=== PATIENT | male | born 1970 | race Caucasian/White ===

== ENCOUNTER 2019-09-25 07:04 | Outpatient (CLI) | payer BC, SELFPAY ==
--- NOTE | 2019-09-25 07:14 | US_ITS ---
WS: [id number] Complete ABDOMINAL ULTRASOUND HISTORY: ECCHYMOSES COMPARISON: None available. Liver: 17.9 cm in length. Liver is top normal size to slightly enlarged. Mild coarsened echotexture. No bile duct dilatation. Gallbladder: Prior cholecystectomy. Pancreas: Normal size and echogenicity. CBD: 0.6 cm. Right kidney: 11.6 cm x 6.4 cm x 5.9 cm. No mass, cortical thickening or hydronephrosis. Left kidney: 12.6 cm x 7.6 cm x 6.8 cm. No mass, cortical thickening or hydronephrosis. Spleen: Normal size and echogenicity. Abdominal aorta and IVC are within normal limits. No ascites. US/US abdomen complete* [id number] IMPRESSION: 1. Liver is top normal size with mild coarsened echotexture. Consistent with h istory of hematocrit steatosis. 2. Prior cholecystectomy.
== END 2019-09-25 07:05 | disposition home or self-care (01) ==
LOC: RAD 07:09
PROVIDERS: PCP Electrodiagnostic Medicine; Visit Provider Electrodiagnostic Medicine
DX: R23.3 Spontaneous ecchymoses (principal); E83.119 Hemochromatosis, unspecified; I10 Essential (primary) hypertension
CPT/HCPCS: 76700

== ENCOUNTER 2019-11-28 17:57 | Emergency (ER) | payer BC, SELFPAY ==
[2019-11-28] VITALS (8 sets, daily range): BP systolic 114–161; BP diastolic 78–100; PULSE 65–91; RESP 14–19; TEMP 36.5; O2SAT 97–99; BMI 34.7
--- NOTE | 2019-11-28 18:58 | XRR_ITS ---
PROCEDURE INFORMATION: Exam: XR Chest, 1 View Exam date and time: 11/28/2019 7:16 PM Age: 49 years old Clinical indication: Cardiovascular condition or disease; Atrial fibrillation; Patient HX: A-fib and dizzy TECHNIQUE: Imaging protocol: XR of the chest Views: 1 view. COMPARISON: CR Chest 1 [place] [id number] 01/06/2016 6:46 PM FINDINGS: Lungs: Unremarkable. No consolidation. Pleural space: Unremarkable. No pleural effusion. No pneumothorax. Heart/Mediastinum: Unremarkable. No cardiomegaly. Bones/joints: No acute abnormality. XR/XR chest 1V portable [id number] IMPRESSION: No acute findings.
--- NOTE | 2019-11-28 20:59 | ECG_ITS ---
[facility] Test Date: 2019-11-28 Pat Name: Josh Santos Department: Room: Gender: Male Aging Department Supervisor: lakesha : 1970 Requested By: Huan Calero Order Number: [id number] Trang MD: Nya Farris M.D. Measurements Intervals [place] Rate: 74 P: OR: -1 QRS: -17 QRSD: 105 T: 28 QT: 347 QTc: 386 Interpretive Statements ATRIAL FIBRILLATION POSSIBLE RIGHT VENTRICULAR CONDUCTION DELAY [RSR (QR) IN V1/V2] ABNORMAL RHYTHM ECG Compared to ECG 01/06/2016 19:46:07 Sinus rhythm no longer present Incomplete right bundle-branch block no longer present Myocardial infarct finding no longer present Electronically Signed On 11-29-2019 16:21:58 CDT by Nya Farris M.D. [id number]
--- NOTE | 2019-11-28 21:16 | PC.NURSE ---
hcp in room
[2019-11-28 21:20] LABS: Basophils % 0.4 %; Eosinophils # 0.2 10^3/uL (0.0-0.8); Eosinophils % 2.1 %; Hematocrit 43.5 % (42.0-52.0); Hemoglobin 15.3 g/dL (11.7-16.6); Lymphocytes # 1.9 10^3/uL (0.8-4.8); Lymphocytes % 25.5 %; Mean Corpuscular HGB Conc 35.2 g/dL (30.0-36.0); Mean Corpuscular Hemoglobin 32.3 pg (28.0-34.0); Mean Corpuscular Volume 91.8 fL (80-94); Mean Platelet Volume 11.2 fL (7.4-10.4); Monocytes # 0.7 10^3/uL (0.2-0.9); Monocytes % 8.8 %; Neutrophils % 62.9 %; Nucleated Red Blood Cells % 0 %; Platelet Count 228 10^3/cmm (130-400); Red Blood Count 4.74 10^6/uL (4.1-5.3); Red Cell Distribution Width 11.9 % (12.1-15.1); White Blood Count 7.6 10^3/uL (4.0-10.0)
[2019-11-28 21:47] LABS: Alanine Aminotransferase 21 U/L (0-41); Albumin Level 4.4 g/dL (3.5-5.2); Alkaline Phosphatase 52 IU/L (40-130); Anion Gap 14.4 (5-19); Aspartate Amino Transferase 17 U/L (0-40); Blood Urea Nitrogen 12 mg/dL (6-20); Calcium 9.6 mg/dL (8.5-10.5); Carbon Dioxide 24 mmol/L (22-29); Chloride 106 mmol/L (98-107); Creatinine Clr Calc Pharmacy 128.2955; Globulin 2.7 g/dL (1.3-4.6); Glomerular Filtration Rate 78.8 mL/min (90-130); Glucose 103 mg/dL (65-115); Osmolality Calculated 286 mOsm/kg (285-295); Potassium 4.4 mmol/L (3.5-5.1); Sodium 140 mmol/L (136-145); Total Bilirubin 0.3 mg/dL (0.15-1.2); Total Protein 7.1 g/dL (6.6-8.7)
[2019-11-28 21:51] LABS: Troponin(5th) Baseline 10 ng/L (0-15)
--- NOTE | 2019-11-28 22:52 | ED_ITS ---
HPI - Arrhythmia/Palpitations General: Chief Complaint: Arrhythmia/Palpitations Stated Complaint: afib Time Seen by Provider: 11/28/19 21:09 History of Present Illness: HPI narrative: This patient is a very nice gentleman who is 49 years old. He presents today with atrial fibrillation. He has been having paroxysmal A. fib for probably 20 years but has only been diagnosed for the past 8. He has been managed on metoprolol which he takes twice a day, 50 mg each time. He had been on Xarelto at one time but as his episodes have been pretty infrequent he is on aspirin only now. These symptoms started last night and have continued throughout the day. He said this is the longest any of his episodes of ever lasted. He is only had to come to the ER few times. He is never been cardioverted. He never has a racing heart rate, just irregularity and palpitations. He can definitely feel the palpitations and is certain of the time of onset. He denies shortness of breath but does feel very tired. He feels a little bit lightheaded if he stands up too quickly. He denies chest pain. complaint: skipped beats , palpitations and irregular heart beat Onset (ago): minute(s) (18) Duration: constant Severity: similar to previous episodes Context: occurred during rest Arrhythmia history: atrial fibrillation Associated symptoms: Reports no associated symptoms; Deny nausea or vomiting Treatments prior to arrival: beta-angel Review of Systems General: Reports: 10 or more systems reviewed and unremarkable except in HPI and below Const: Denies: fever(s), chills or malaise Eyes: Denies: change in vision ENMT: Denies: odynophagia Card: Denies: chest pain or swelling of feet/ankles Resp: Denies: dyspnea, productive cough or non-productive cough GI: Denies: abdominal pain, nausea or vomiting : Denies: flank pain Musc: Denies: neck pain or back pain Skin/Breast: Denies: rash Neuro: Denies: headache(s), numbness in extremities or weakness in extremities Rakesh/Lymph: Denies: easy bruising or easy bleeding PFSH ED PFSH: Medical History (Updated 11/28/19 @ 22:54 by Kiarra Peterson MD) Paroxysmal atrial fibrillation Social History (Updated 09/11/20 @ 18:22 by Tabby Peralta RN) Smoking and tobacco status: never smoked Alcohol intake: current Substance/Drug Use: never Physical Exam Const: COMMON NORMALS: no acute distress, patient oriented x3, no limitations and alert GENERAL APPEARANCE: cooperative and comfortable HENMT: HEAD & SCALP: normal to inspection FACE & SINUS: normal facial exam Eye: GENERAL EYE: appearance normal, both eyes and all related structures Neck/C-Spine: COMMON NORMALS: supple, no meningeal signs and no JVD Chest: COMMONS NORMALS: normal inspection of the chest Resp: COMMON NORMALS: normal respiratory effort, No use of accessory muscles and clear to auscultation bilaterally AUSCULTATION: clear to auscultation bilaterally Cardio: COMMON NORMALS: no JVD, regular rate and No murmurs present (Cardio) RATE: regular rate RHYTHM: abnormal rhythm irregularly irregular GI: COMMON NORMALS: Normal to inspection, nondistended, normoactive bowel sounds present, Soft to palpation and non-tender INSPECTION: Yes normal to inspection AUSCULTATION: Yes normoactive bowel sounds PALPATION: Yes Soft to palpation Back/Pelvis: COMMON NORMALS: thoracic and lumbar spine normal to inspection Extremity: COMMON NORMALS: normal to inspection Neuro: COMMON NORMALS: patient oriented x3, moves all extremities, no focal motor deficits and no sensory deficits noted SENSORIUM/ORIENTATION: Yes alert MENINGEAL SIGNS: Yes no meningeal signs Psych: COMMON NORMALS: mental status grossly normal, cooperative and normal affect Skin: COMMON NORMALS: no rashes or lesions noted and turgor normal GENERAL SKIN EXAM: no rashes or lesions noted and turgor normal Course ED course: Patient was stable throughout the ED stay. His EKGs did not show any ischemic changes. His work-up on his labs was fairly unremarkable. I discussed case with Dr. Luque who recommended increasing his metoprolol to 75 mg in the morning. Continuing the 50 mg at night. He agreed with starting Xarelto. He will follow-up with the patient in the office shortly. I did discuss the option of cardioversion with the patient. He is not enthusiastic about trying that at this time. We discussed the pros and cons and he understands. Vital Signs: Vital signs: Vital Signs Temperature 97.7 F 11/28/19 18:07 Pulse Rate 75 11/28/19 22:01 Respiratory Rate 16 11/28/19 22:01 Blood Pressure 123/84 11/28/19 22:01 Pulse Oximetry 98 11/28/19 22:01 MDM - Arrhythmia/Palpitations Lab Data: Labs: Lab Results 11/28/19 11/28/19 11/28/19 Range/Units 21:12 21:12 21:12 WBC 7.6 (4.0-10.0) 10^3/ uL RBC 4.74 (4.1-5.3) 10^6/u L Hgb 15.3 (11.7-16.6) g/dL Hct 43.5 (42.0-52.0) % MCV 91.8 (80-94) fL MCH 32.3 (28.0-34.0) pg MCHC 35.2 (30.0-36.0) g/dL RDW 11.9 L (12.1-15.1) % Plt Count 228 (130-400) 10^3/c mm MPV 11.2 H (7.4-10.4) fL Neut % (Auto) 62.9 % Lymph % (Auto) 25.5 % [place] % (Auto) 8.8 % Eos % (Auto) 2.1 % Baso % (Auto) 0.4 % Neut # (Auto) 4.80 (1.8-7.7) 10^3/u L Lymph # (Auto) 1.9 (0.8-4.8) 10^3/u L [place] # (Auto) 0.7 (0.2-0.9) 10^3/u L Eos # (Auto) 0.2 (0.0-0.8) 10^3/u L Baso # (Auto) 0.0 (0.0-0.1) 10^3/u L Nucleated RBC % (a uto) 0 % Nucleated RBCs # 0.0 /100WBC Sodium 140 (136-145) mmol/L Potassium 4.4 (3.5-5.1) mmol/L Chloride 106 (98-107) mmol/L Carbon Dioxide 24 (22-29) mmol/L Anion Gap 14.4 (5-19) BUN 12 (6-20) mg/dL Creatinine 1.0 (0.7-1.2) mg/dL GFR Calculation 78.8 L (90-130) mL/min Glucose 103 (65-115) mg/dL Calculated Osmolal ity 286 (285-295) mOsm/k g Calcium 9.6 (8.5-10.5) mg/dL Magnesium 2.0 (1.7-2.3) mg/dL Total Bilirubin 0.3 (0.15-1.2) mg/dL AST 17 (0-40) U/L ALT 21 (0-41) U/L Alkaline Phosphata se 52 (40-130) IU/L Troponin T Baselin e 10 (0-15) ng/L Total Protein 7.1 (6.6-8.7) g/dL Albumin 4.4 (3.5-5.2) g/dL Globulin 2.7 (1.3-4.6) g/dL Discharge Plan Discharge Patient Disposition: Home Clinical Impression: Atrial fibrillation Qualifiers: Atrial fibrillation type: paroxysmal Qualified Code(s): I48.0 - Paroxysmal atrial fibrillation Condition: Stable Prescriptions: New metoprolol tartrate 75 mg tablet 75 mg PO DAILY Qty: 30 RF: 0 metoprolol tartrate 50 mg tablet 50 mg PO DAILY Qty: 30 RF: 0 Xarelto 20 mg tablet 20 mg PO DAILY Qty: 30 RF: 0 Discharge Orders: Discharge Order (Routine); Ordered 11/28/19 Ordered By: Kiarra Peterson Referrals: Nya Farris MD [Physician] - 4-7 days Wei Cardoza DO [Primary Care Provider] - Discharge Diet: Usual diet Discharge Activity: Resume usual activity Patient Instructions: Atrial Fibrillation (ED) Activity Restrictions/Additional Instructions: Increase the metoprolol to 75 mg in the morning and continue 50 mg at night. Start the Xarelto tomorrow evening. Contact Dr. Farris's office on Sunday to arrange for close follow-up. Return to the ED if worsening symptoms including c hest pain, shortness of breath, lightheadedness. 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
[2019-11-28] MEDS: rivaroxaban 10 mg Tablet 20 MG PO (22:56)
== END 2019-11-28 23:36 | disposition home or self-care (01) ==
PROVIDERS: Nurse Practitioner Family; Emergency Provider Emergency Medicine; PCP Electrodiagnostic Medicine
DX: I48.0 Paroxysmal atrial fibrillation (principal)
CPT/HCPCS: 12345; 36415; 71045; 80053; 83735; 84484; 85025; 93005; 99284

== ENCOUNTER 2020-01-22 12:44 | Outpatient (CLI) | payer BC, SELFPAY ==
--- NOTE | 2020-01-25 08:44 | ONC FU_ITS ---
Dr. Abel Patient Follow-Up Note Patient: Josh Santos Unit #: [id number]: 1970 Dicatated By: Modesto Abel M.D.Date of Visit:Jan 22, 2020 Onc Med Follow-up/Prog Note Chief Complaint: Hemochromatosis. History of Present Illness: This is a 49 year-old man with hereditary hemochromatosis. He has an older brother who was found to have hereditary hemochromatosis. 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 His baseline serum ferritin was 709 ng/mL and his serum iron was 194 mcg/dL with transferrin saturation 74%. At the time, he was having some abdominal discomfort and he generally felt very tired. He had significant symptomatic improvement after he started phlebotomies, which he has tolerated very well. He typically has between 2 and 4 phlebotomies every 3-4 months. He has been getting them done through the [facility] in [place]. He had been seeing a senior oracle pl sql developer in [place] who has now left the area, and he then transferred his care here. I had seen him initially in September 2013. His serum iron studies at that time showed transferrin saturation 43%. The ferritin level was in target range at 37 ng/mL. He continued on his phlebotomy program. As of his follow-up visit on 01/17/2018 his transferrin saturation had increased to 55%, but with ferritin up just slightly to 52 ng/mL. He continued phlebotomies every 2-3 months. His general health has been good. His other medical illnesses have included irritable bowel syndrome and paroxysmal atrial fibrillation, both of which tend to be stress related. He has been told that he has fatty liver. He is seen for a scheduled visit. He indicates that in November he had a flareup of his atrial fibrillation. That problem is now controlled, but in the meantime he has started anticoagulation with rivaroxaban. As such, the blood bank is no longer excepting his blood for donation. He indicates he had laboratory studies with Dr. Cardoza back in August and that his liver enzymes were normal and that his ferritin level was low. He says he is feeling fine now. His energy is pretty good and he has normal activity. ECOG score 0. He has good appetite. He has no fever or night sweats. He has no shortness of breath, cough, or chest pain. He has no GI or complaints. He has some aches and pains and some joint stiffness. He also reports occasional muscle spasms. He has headache occasionally. He has no focal neurologic symptoms. Medications: Baclofen 1 Tablet (of 10 mg) Oral PRN, Ibuprofen 2 - 4 Tablet (of 200 mg) Oral PRN, Metoprolol Tartrate (25 mg) Tablet Oral Take as Directed, Xarelto 1 Tablet (of 10 mg) Oral daily Allergies: No Known Allergies. Review of Systems: Constitutional - He says he is feeling fine now. He has pretty good energy. He has normal activity. Appetite is good and weight is stable. No fever, night sweats, or hot flashes. ECOG score is 0, ENMT - He has allergy related sinus symptoms. No mouth sores. No sore throat or difficulty swallowing, Hematologic/Lymphatic - No abnormal bruising or bleeding, Respiratory - No shortness of breath. No cough. No pleuritic pain or hemoptysis, Cardiovascular - No angina pain. In November he had problems again with atrial fibrillation, that has now been resolved, Gastrointestinal - No nausea or vomiting. No heartburn or acid reflux. No diarrhea or constipation. No blood in the stool or black stools, Genitourinary (M) - No dysuria or hematuria. No urinary frequency. No urgency or incontinence, Musculoskeletal - He has a few aches and pains and he also has some stiffness. He has occasional muscle spasms, Integumentary - No skin rash, Neurologic - He has occasional headache. No dizziness. No numbness or tingling. No other focal neurologic symptoms, Psychiatric - No anxiety or depression. No insomnia. Vital Signs: Performed on Jan 22, 2020 12:59 Height - 76.00 in Weight - 297.4 lbs (LOW) BSA - 2.62 sq.m BMI - 36.20 (HIGH) Temperature - 98.2 F (LOW) Pulse - 66 /min Respiration - 24 /min BP - 155/83 mm(hg) (HIGH) O2 Sat - 99 % Pain - 0 Physical Examination: Constitutional - He looks good generally, Eyes - Sclerae nonicteric. Conjunctivae clear, ENMT - No lesions noted in the oral cavity, Hematologic/Lymphatic - No cervical, clavicular, or axillary adenopathy, Respiratory - Lungs are clear with good air movement bilaterally, Cardiovascular - Heart rhythm is regular. There is no murmur, gallop, or rub noted, Abdomen - Soft. Liver and spleen are not enlarged. There is no abdominal mass or ascites noted and there is no inguinal adenopathy, Extremities - No edema, Neurologic - No focal neurologic deficits noted. Impression: 1. 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 It is being managed with phlebotomy. His other medical illnesses include: 2. Paroxysmal atrial fibrillation. 3. Irritable bowel syndrome. 4. Allergic rhinitis. 5. Fatty liver (by history). 6. Obstructive sleep apnea. 7. He has a history of cervical spondylosis without myelopathy. During follow-up he had reported some fatigue and some joint pain. As of his follow-up visit in January 2018 he appeared stable clinically, but at that point his transferrin saturation was mildly elevated at 55%. He had then continued phlebotomies a little more consistently, at least every 2-3 months. As of his follow-up visit in January 2019, his transferrin saturation and ferritin were in target range. He continued his regular blood donations. As of August 2019 his ferritin was reportedly still in target range. In November he had a flareup of atrial fibrillation. It is now controlled, but in the meantime he was started on anticoagulation with rivaroxaban. His clinical status otherwise remains stable. Plan: I will have him repeat his laboratory studies with Dr. Cardoza to include CBC, comprehensive metabolic profile, serum iron studies and ferritin. I will recommend a phlebotomy schedule, depending on those results. His management now may be a little more problematic, as the blood bank is no longer accepting his blood for donation due to the rivaroxaban. However, I will just plan to see him again in 1 year. Signed By: Modesto Abel M.D. <<Signature on File>>
== END 2020-01-22 12:45 | disposition home or self-care (01) ==
LOC: ONCMED 12:46
PROVIDERS: PCP Electrodiagnostic Medicine; Visit Provider Internal Medicine Medical Oncology
DX: E83.110 Hereditary hemochromatosis (principal); I48.0 Paroxysmal atrial fibrillation; K58.9 Irritable bowel syndrome, unspecified; J30.9 Allergic rhinitis, unspecified; K76.0 Fatty (change of) liver, not elsewhere classified; G47.33 Obstructive sleep apnea (adult) (pediatric); M47.812 Spondylosis without myelopathy or radiculopathy, cervical region; Z79.01 Long term (current) use of anticoagulants
CPT/HCPCS: G0463

== ENCOUNTER 2020-10-03 10:57 | Emergency (ER) | payer BC, SELFPAY ==
[2020-10-03] VITALS (7 sets, daily range): BP systolic 127–164; BP diastolic 82–95; PULSE 76–90; RESP 17–20; TEMP 37; O2SAT 93–98; BMI 34.0
--- NOTE | 2020-10-03 14:10 | ECG_ITS ---
[facility] Test Date: 2020-10-03 Pat Name: Josh Santos Department: Room: Gender: Male Site Controller: : 1970 Requested By: Prakash Ashton Order Number: [id number] Trang MD: Edgar Nassar M.D. Measurements Intervals [place] Rate: 84 P: 26 CO: 195 QRS: -18 QRSD: 104 T: 26 QT: 256 QTc: 304 Interpretive Statements SINUS RHYTHM LOW QRS VOLTAGE IN PRECORDIAL LEADS [QRS DEFLECTION < 1.0 mV IN CHEST LEADS] NONSPECIFIC T-WAVE ABNORMALITY Compared to ECG 11/28/2019 20:33:05 Low QRS voltage now present T-wave abnormality now present Atrial fibrillation no longer present Electronically Signed On 10-03-2020 20:16:19 CDT by Edgar Nassar M.D. [email or web address]
--- NOTE | 2020-10-03 14:10 | XRR_ITS ---
PROCEDURE INFORMATION: Exam: XR Chest Exam date and time: 10/03/2020 2:10 PM Age: 50 years old Clinical indication: Shortness of breath; Additional info: SOB TECHNIQUE: Imaging protocol: XR of the chest. Views: 1 view. COMPARISON: CR XR chest 1V portable [id number] 11/28/2019 7:03 PM FINDINGS: Lungs: Mild atelectasis in the lung bases. Otherwise clear. Pleural spaces: Unremarkable. No pleural effusion. No pneumothorax. Heart/Mediastinum: Unremarkable. No cardiomegaly. Bones/joints: Unremarkable. XR/XR chest 1V portable [id number] IMPRESSION: 1. No acute findings.
--- NOTE | 2020-10-03 14:11 | W.ED.SOB ---
HPI - SOB/Dyspnea General: Chief Complaint: Upper Respiratory Infection Stated Complaint: COVID +, SOB Time Seen by Provider: 10/03/20 13:49 History of Present Illness: HPI Narrative: Patient is a 50-year-old male that comes to the ED with shortness of breath. Patient has a past medical history of A. fib. Patient tested positive for COVID-19 on September 23. His primary care doctor started him on a steroid and Z-Mauri. Patient finished up taking all those medications. Over the past week he feels like he has had increased shortness of breath and chest tightness. He says the symptoms worsen when he is up and active. His cough is mostly dry. Patient uses an at home pulse ox and he says that this morning it was reading around 90% O2 sat. Associated symptoms: Reports chest pain (chest tightness); Deny abdominal pain, fever(s), nausea, orthopnea, palpitations or vomiting Review of Systems Const: Denies: fever(s), chills or fatigue Eyes: Denies: change in vision or eye discomfort ENMT: Denies: throat pain, odynophagia, nasal discharge or nasal congestion Card: Reports: chest pain (chest tightness); Denies: palpitations, edema, swelling of feet/ankles, dyspnea on exertion or orthopnea Resp: Reports: dyspnea and non-productive cough; Denies: productive cough GI: Denies: abdominal pain, nausea, vomiting, diarrhea, constipation or hematochezia : Denies: flank pain, difficulty urinating, dysuria or hematuria Musc: Denies: neck pain, back pain or extremity swelling Skin/Breast: Denies: rash or new lesions Neuro: Denies: headache(s), numbness in extremities or weakness in extremities [facility] ED PFSH: Medical History History of hemochromatosis Hx of sleep apnea Hypertension Paroxysmal atrial fibrillation Social History Smoking and tobacco status: never smoked Alcohol intake: current Physical Exam Const: COMMON NORMALS: no acute distress, patient oriented x3, healthy appearing and alert GENERAL APPEARANCE: cooperative and comfortable HENMT: COMMON NORMALS: normocephalic HEAD & SCALP: normocephalic MOUTH: Normal oral and palatal mucosa present THROAT: posterior oropharynx normal and uvula midline Neck/C-Spine: COMMON NORMALS: supple GENERAL: Yes normal visual inspection Resp: COMMON NORMALS: normal respiratory effort, No retractions, No use of accessory muscles and clear to auscultation bilaterally EFFORT & INSPECTION: Yes able to speak in complete sentences, No tachypneic, No respiratory distress and No labored AUSCULTATION: clear to auscultation bilaterally Cardio: COMMON NORMALS: regular rate, regular rhythm, S1 normal heart sound present, S2 normal heart sound present, No gallops present (Cardio), No clicks present (Cardio), No murmurs present (Cardio) and Peripheral pulses 2+ throughout RATE: regular rate RHYTHM: regular rhythm HEART SOUNDS: S1 normal heart sound present and S2 normal heart sound present PERIPHERAL PULSES: Peripheral pulses 2+ throughout GI: COMMON NORMALS: Normal to inspection, nondistended, normoactive bowel sounds present, Soft to palpation, non-tender and no masses PALPATION: Yes Soft to palpation : COMMON NORMALS: Yes no CVA tenderness BLADDER/KIDNEY EXAM: Yes no CVA tenderness Back/Pelvis: COMMON NORMALS: no CVA tenderness Extremity: COMMON NORMALS: normal to inspection Neuro: COMMON NORMALS: patient oriented x3 and moves all extremities SENSORIUM/ORIENTATION: Yes alert Skin: GENERAL SKIN EXAM: dry skin Course Vital Signs: Vital signs: Vital Signs Temperature 98.6 F 10/03/20 11:04 Pulse Rate 90 10/03/20 17:00 Respiratory Rate 20 H 10/03/20 17:00 Blood Pressure 137/95 10/03/20 17:00 Pulse Oximetry 95 10/03/20 17:00 MDM - SOB/Dyspnea MDM Narrative: Medical decision making narrative: Patient is a 50-year-old male comes to the ED with shortness of breath and tested positive for COVID-19 on September 23. Patient is a healthy and nontoxic-appearing 50-year-old male in no acute distress. Clear to auscultation bilaterally. CBC and CMP were unremarkable. Troponin negative chest x-ray showed no acute findings. EKG showed normal sinus rhythm with no ST segment elevation or depression seen. Patient was given a dose of Decadron while here in the ED. Home O2 eval performed and patient did qualify for 2 L of home oxygen when up and ambulating. Patient diagnosed with COVID-19 and he was discharged home on oxygen and Decadron. Return to ED precautions given. Follow-up with PCP in 7 to 10 days reevaluation. Patient understood and agree with plan. Lab Data: Attestation: I reviewed the patient's lab results. Labs: Lab Results 10/03/20 10/03/20 10/03/20 Range/Units 14:40 14:40 14:40 WBC 8.2 (4.0-10.0) 10^3/ uL RBC 4.51 (4.1-5.3) 10^6/u L Hgb 14.8 (11.7-16.6) g/dL Hct 42.1 (42.0-52.0) % MCV 93.3 (80-94) fL MCH 32.8 (28.0-34.0) pg MCHC 35.2 (30.0-36.0) g/dL RDW 11.0 L (12.1-15.1) % Plt Count 260 (130-400) 10^3/c mm MPV 10.9 H (7.4-10.4) fL Neut % (Auto) 81.7 % Lymph % (Auto) 10.6 % Hampton % (Auto) 6.1 % Eos % (Auto) 1.0 % Baso % (Auto) 0.1 % Neut # (Auto) 6.67 (1.8-7.7) 10^3/u L Lymph # (Auto) 0.9 (0.8-4.8) 10^3/u L Hampton # (Auto) 0.5 (0.2-0.9) 10^3/u L Eos # (Auto) 0.1 (0.0-0.8) 10^3/u L Baso # (Auto) 0.0 (0.0-0.1) 10^3/u L Nucleated RBC % (a uto) 0 % Nucleated RBCs # 0.0 /100WBC Sodium 135 L (136-145) mmol/L Potassium 3.8 (3.5-5.1) mmol/L Chloride 100 (98-107) mmol/L Carbon Dioxide 25 (22-29) mmol/L Anion Gap 13.8 (5-19) BUN 12 (6-20) mg/dL Creatinine 0.9 (0.7-1.2) mg/dL GFR Calculation 88.6 L (90-130) mL/min Glucose 129 H (65-115) mg/dL Calculated Osmolal ity 281 L (285-295) mOsm/k g Calcium 9.0 (8.5-10.5) mg/dL Total Bilirubin 0.4 (0.15-1.2) mg/dL AST 32 (0-40) U/L ALT 40 (0-41) U/L Alkaline Phosphata se 55 (40-130) IU/L Troponin T Baselin e 7 (0-15) ng/L Total Protein 6.7 (6.6-8.7) g/dL Albumin 4.1 (3.5-5.2) g/dL Globulin 2.6 (1.3-4.6) g/dL Imaging Data^: CXR: Attestation: I personally reviewed and interpreted this imaging study as follows: My impression: lung consolidation. Some viral pneumonia signs as well. Radiologist's impression: [address] [id number] ReportSigned Patient: Josh Santos #: [id number]: [id number]#:[id number]/Sex: 50 / MADM Date: 10/03/20[facility]Attending Dr: Ordering Provider/Ordering MD: Prakash Ashton Date of Service: 10/03/20 Procedure(s): XR chest 1V portable [id number] Accession Number(s): [id number] Report Number: [id number] PROCEDURE INFORMATION: Exam: XR Chest Exam date and time: 10/03/2020 2:10 PM Age: 50 years old Clinical indication: Shortness of breath; Additional info: SOB TECHNIQUE: Imaging protocol: XR of the chest. Views: 1 view. COMPARISON: CR XR chest 1V portable [id number] 11/28/2019 7:03 PM FINDINGS: Lungs: Mild atelectasis in the lung bases. Otherwise clear. Pleural spaces: Unremarkable. No pleural effusion. No pneumothorax. Heart/Mediastinum: Unremarkable. No cardiomegaly. Bones/joints: Unremarkable. XR/XR chest 1V portable [id number] IMPRESSION: 1. No acute findings. Dictated By:Mariana Garrett By:Mariana Garrett Date/Time:10/03/20 1702DD/ 1700 EKG Data^: EKG 1: Attestation: I personally reviewed and interpreted this EKG as follows: EKG Interpretation Date: 10/03/20 Interpretation: Sinus rhythm, 84 bpm, no ST segment elevation or depression seen. Discharge Plan Discharge Patient Disposition: Home Clinical Impression: COVID-19 Condition: Stable Prescriptions: New Decadron 6 mg tablet 6 mg PO DAILY 7 Days Qty: 7 RF: 0 No Action metoprolol tartrate 50 mg tablet 50 mg PO BID Qty: 225 RF: 3 Xarelto 20 mg tablet 20 mg PO DAILY Qty: 90 RF: 3 Discharge Orders: Discharge ED (Routine); Ordered 10/03/20 Ordered By: Prakash Ashton Other Ambulatory Orders: DME: Oxygen (Order) Location: None Selected Ordered By: Prakash Ashton Referrals: Wei Cardoza, [Primary Care Provider] - Discharge Diet: Regular Discharge Activity: Resume usual activity Patient Instructions: Using Oxygen at Home (ED), Viral Syndrome (ED) Activity Restrictions/Additional Instructions: Follow-up with medical provider as directed Take medications as prescribed. Return to the ER or your medical provider if condition worsens. Please read and understand discharge instructions. Thank you for choosing [facility] for your healthcare needs today. Please realize this is an emergency room and that we are providing you with a medical screening exam and this may not be complete and all inclusive of all the testing and or work up that you may need to determine your ailment or severity of your illness. It is very important that you follow up as instructed or that you return to the Emergency Department should you have concerns or if your condition changes or worsens in any way. Coding Level of Care Code ED Principal Java Software Engineer for Chg Fwd Exam Comprehensive
[2020-10-03 14:57] LABS: Basophils % 0.1 %; Eosinophils # 0.1 10^3/uL (0.0-0.8); Hematocrit 42.1 % (42.0-52.0); Hemoglobin 14.8 g/dL (11.7-16.6); Lymphocytes # 0.9 10^3/uL (0.8-4.8); Lymphocytes % 10.6 %; Mean Corpuscular HGB Conc 35.2 g/dL (30.0-36.0); Mean Corpuscular Hemoglobin 32.8 pg (28.0-34.0); Mean Corpuscular Volume 93.3 fL (80-94); Mean Platelet Volume 10.9 fL (7.4-10.4); Monocytes # 0.5 10^3/uL (0.2-0.9); Monocytes % 6.1 %; Neutrophils # 6.67 10^3/uL (1.8-7.7); Neutrophils % 81.7 %; Nucleated Red Blood Cells % 0 %; Platelet Count 260 10^3/cmm (130-400); Red Blood Count 4.51 10^6/uL (4.1-5.3); White Blood Count 8.2 10^3/uL (4.0-10.0)
[2020-10-03 15:20] LABS: Alanine Aminotransferase 40 U/L (0-41); Albumin Level 4.1 g/dL (3.5-5.2); Alkaline Phosphatase 55 IU/L (40-130); Anion Gap 13.8 (5-19); Aspartate Amino Transferase 32 U/L (0-40); Blood Urea Nitrogen 12 mg/dL (6-20); Carbon Dioxide 25 mmol/L (22-29); Chloride 100 mmol/L (98-107); Globulin 2.6 g/dL (1.3-4.6); Glomerular Filtration Rate 88.6 mL/min (90-130); Glucose 129 mg/dL (65-115); Osmolality Calculated 281 mOsm/kg (285-295); Potassium 3.8 mmol/L (3.5-5.1); Sodium 135 mmol/L (136-145); Total Bilirubin 0.4 mg/dL (0.15-1.2); Total Protein 6.7 g/dL (6.6-8.7)
[2020-10-03 15:23] LABS: Troponin(5th) Baseline 7 ng/L (0-15)
[2020-10-03] MEDS: dexamethasone 4 mg Tablet 10 MG PO (17:27)
== END 2020-10-03 17:51 | disposition home or self-care (01) ==
PROVIDERS: Emergency Provider Physician Assistant; PCP Electrodiagnostic Medicine
DX: U07.1 COVID-19 (principal); I10 Essential (primary) hypertension
CPT/HCPCS: 71045; 80053; 84484; 85025; 93005; 99284; J8540

== ENCOUNTER 2021-01-20 11:16 | Outpatient (CLI) | payer BC, SELFPAY ==
[2021-01-20 12:52] LABS: Basophils % 0.4 %; Eosinophils # 0.1 10^3/uL (0.0-0.8); Eosinophils % 1.5 %; Hematocrit 40.5 % (42.0-52.0); Hemoglobin 14.1 g/dL (11.7-16.6); Lymphocytes # 1.3 10^3/uL (0.8-4.8); Lymphocytes % 28.1 %; Mean Corpuscular HGB Conc 34.8 g/dL (30.0-36.0); Mean Corpuscular Hemoglobin 32.4 pg (28.0-34.0); Mean Corpuscular Volume 93.1 fl (80-94); Mean Platelet Volume 12.2 fL (7.4-10.4); Monocytes # 0.4 10^3/uL (0.2-0.9); Monocytes % 9.5 %; Neutrophils # 2.74 10^3/uL (1.8-7.7); Neutrophils % 60.3 %; Nucleated Red Blood Cells % 0 %; Platelet Count 206 10^3/cmm (130-400); Red Blood Count 4.35 10^6/uL (4.1-5.3); Red Cell Distribution Width 11.6 % (12.1-15.1); White Blood Count 4.6 10^3/uL (4.0-10.0)
[2021-01-20 13:27] LABS: Alanine Aminotransferase 24 U/L (0-41); Albumin Level 4.3 g/dL (3.5-5.2); Alkaline Phosphatase 51 IU/L (40-130); Anion Gap 13.2 (5-19); Aspartate Amino Transferase 22 U/L (0-40); Blood Urea Nitrogen 11 mg/dL (6-20); Calcium 9.6 mg/dL (8.5-10.5); Carbon Dioxide 27 mmol/L (22-29); Chloride 105 mmol/L (98-107); Ferritin 157 ng/mL (30-400); Globulin 2.7 g/dL (1.3-4.6); Glomerular Filtration Rate 88.6 mL/min (90-130); Glucose 90 mg/dL (65-115); Iron 146 ug/dL (59-158); Osmolality Calculated 291 mOsm/kg (285-295); Percent Saturation 54.2 % (20-50); Potassium 4.2 mmol/L (3.5-5.1); Sodium 141 mmol/L (136-145); Total Bilirubin 0.2 mg/dL (0.15-1.2); Total Iron Binding Capacity 269 mcg/dl; Unsaturated Iron Binding 123 ug/dL (112-347)
--- NOTE | 2021-01-22 11:14 | ONC FU_ITS ---
Dr. Abel Patient Follow-Up Note Patient: Josh Santos Unit #: [id number]: [id number] Dicatated By: Modesto Abel M.D.Date of Visit:Jan 20, 2021 Onc Med Follow-up/Prog Note Chief Complaint: Hemochromatosis. History of Present Illness: This is a 50 year-old man with hereditary hemochromatosis. He has an older brother who was found to have hereditary hemochromatosis. 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 His baseline serum ferritin was 709 ng/mL and his serum iron was 194 mcg/dL with transferrin saturation 74%. At the time, he was having some abdominal discomfort and he generally felt very tired. He had significant symptomatic improvement after he started phlebotomies, which he has tolerated very well. He typically has between 2 and 4 phlebotomies every 3-4 months. He has been getting them done through the [facility] in [place]. He had been seeing a elephant tamer in [place] who has now left the area, and he then transferred his care here. I had seen him initially in September 2013. His serum iron studies at that time showed transferrin saturation 43%. The ferritin level was in target range at 37 ng/mL. He continued on his phlebotomy program. As of his follow-up visit on 01/17/2018 his transferrin saturation had increased to 55%, but with ferritin up just slightly to 52 ng/mL. He continued phlebotomies every 2-3 months. His general health has been good. His other medical illnesses have included irritable bowel syndrome and paroxysmal atrial fibrillation, both of which tend to be stress related. He has been told that he has fatty liver. He is seen for a scheduled visit. He says he has had a very difficult year, beginning in May when he developed a very severe case of shingles in the right thoracic distribution. The eruption lasted for months despite having 3 courses of antiviral therapy and steroid, and it is still not completely resolved. He was then diagnosed with COVID-19 virus infection in September. He did get pretty ill, but with uneventful recovery. A couple of weeks ago he began feeling bad again with abdominal bloating and lower abdominal discomfort. He did not have diarrhea associated with it. This past week he has been feeling better, though he continues to have occasional sharp pains in the right lower quadrant area. His energy has been getting better gradually, but he still tires very easily. ECOG score is 1. He has good appetite. He had fever with the Covid infection, but none since then. He also had night sweating which lasted for 4 to 6 weeks. He does not have cough, and he says his breathing is okay now. He does not complain of chest pain. He has no complaints. He has had chronic pain in his neck and back and he also has some arthritis pain, though generally it has not been as bad. He does not complain of headache or dizziness. He does have some numbness in his left arm. Medications: Baclofen 1 Tablet (of 10 mg) Oral PRN, Ibuprofen 2 - 4 Tablet (of 200 mg) Oral PRN, Metoprolol Tartrate (25 mg) Tablet Oral Take as Directed, Xarelto 1 Tablet (of 10 mg) Oral daily Allergies: No Known Allergies. Vital Signs: Performed on Jan 20, 2021 13:30 Height - 76.00 in Weight - 302.2 lbs (HIGH) BSA - 2.64 sq.m BMI - 36.79 (HIGH) Temperature - 97.9 F (LOW) Pulse - 65 /min Respiration - 18 /min BP - 159/93 mm(hg) (HIGH) O2 Sat - 99 % Pain - 0 Fatigue - 6 Physical Examination: Constitutional - He still looks pretty good generally, Eyes - Sclerae nonicteric. Conjunctivae clear, ENMT - No lesions noted in the oral cavity, Hematologic/Lymphatic - No cervical, clavicular, or axillary adenopathy, Respiratory - Lungs are clear with good air movement bilaterally, Cardiovascular - Heart rhythm is regular. There is no murmur, gallop, or rub noted, Abdomen - Soft. Liver and spleen are not enlarged. There is no abdominal mass or ascites noted and there is no inguinal adenopathy, Extremities - No edema, Integumentary - There are residual erythematous papules in the upper back on the right side, some with excoriation, Neurologic - No focal neurologic deficits noted. Lab/Imaging: Test performed on Jan 20, 2021 11:55 Ferritin 157 ng/mL Iron 146 mcg/dL Sodium 141 mmol/L Iron Binding Capacity (TIBC) 269 mcg/dl Potassium 4.2 mmol/L % Iron Saturation 54.2 % Chloride 105 mmol/L CO2 27 mmol/L UIBC 123 mcg/dL Anion Gap 13.2 BUN 11 mg/dL Creatinine 0.9 mg/dL Cr Clearance (Est) 186.16 mL/min eGFR 88.6 mL/min Glucose 90 mg/dL Osmolality - Calculated 291 mOsm/kg Calcium 9.6 mg/dL Protein, Total 7.0 g/dL Albumin 4.3 g/dL Globulin 2.7 g/dL Bilirubin, Total 0.2 mg/dL ALT (SGPT) 24 U/L AST (SGOT) 22 U/L Alkaline Phosphatase 51 IU/L WBC 4.6 10 3/uL RBC 4.35 10 6/uL HGB 14.1 g/dL HCT 40.5 % MCV 93.1 fl MCH 32.4 pg MCHC 34.8 g/dL RDW 11.6 % Platelet Count 206 10 3/cmm MPV 12.2 fL Neutrophils 2.74 10 3/uL Lymphocytes 1.3 10 3/uL Monocytes 0.4 10 3/uL Eosinophils 0.1 10 3/uL Basophils 0.0 10 3/uL Neutrophil % 60.3 % Lymphocyte % 28.1 % Monocyte % 9.5 % Eosinophil % 1.5 % Basophils % 0.4 % NRBC % 0 % Problem List: 1. 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 2. Paroxysmal atrial fibrillation. 3. Irritable bowel syndrome. 4. Allergic rhinitis. 5. Fatty liver (by history). 6. Obstructive sleep apnea. 7. He has a history of cervical spondylosis without myelopathy. 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 It has been adequately managed with phlebotomy. During the past year he has had a somewhat complicated clinical course, with a severe case of herpes zoster in May 2020 and with COVID-19 virus infection in September 2020. He does appear to be showing adequate recovery. However, as result of those illnesses, he has not been getting phlebotomies and his transferrin saturation and ferritin levels are above target range. He will resume phlebotomies every 3 months, I will monitor his lab studies at 3-month intervals. I will see him again in 1 year, or sooner as needed. Signed By: Modesto Abel M.D. <<Signature on File>>
== END 2021-01-20 11:17 | disposition home or self-care (01) ==
PROVIDERS: PCP Electrodiagnostic Medicine; Visit Provider Internal Medicine Medical Oncology
DX: E83.110 Hereditary hemochromatosis (principal); I48.0 Paroxysmal atrial fibrillation; K58.9 Irritable bowel syndrome, unspecified; J30.9 Allergic rhinitis, unspecified; K76.0 Fatty (change of) liver, not elsewhere classified; G47.33 Obstructive sleep apnea (adult) (pediatric); M47.892 Other spondylosis, cervical region; Z79.899 Other long term (current) drug therapy
CPT/HCPCS: 36415; 80053; 82728; 83540; 83550; 85025; 99214

== ENCOUNTER 2022-06-21 15:57 | Oncology outpatient (recurring) (ONCR) | payer BC, SELFPAY | END 2022-07-16 23:59 | disposition home or self-care (01) | PROVIDERS: PCP Electrodiagnostic Medicine; Visit Provider Internal Medicine Medical Oncology | DX: E83.110 Hereditary hemochromatosis (principal) | CPT/HCPCS: 36415; 80053; 82728; 83540; 83550; 85025 ==

== ENCOUNTER 2022-12-28 08:56 | Oncology outpatient (recurring) (ONCR) | payer BC, SELFPAY ==
[2022-12-28 09:11] VITALS: BP 136/89; PULSE 65; RESP 17; TEMP 36.6; O2SAT 100
[2022-12-28 09:15] LABS: Basophils % 0.6 %; Eosinophils # 0.2 10^3/uL (0.0-0.8); Eosinophils % 3.2 %; Hematocrit 39.8 % (37-53); Lymphocytes # 1.1 10^3/uL (0.8-4.8); Lymphocytes % 21.6 %; Mean Corpuscular HGB Conc 35.4 g/dL (30-55); Mean Corpuscular Hemoglobin 33.1 pg (27-33); Mean Corpuscular Volume 93.4 fl (82-101); Mean Platelet Volume 11.3 fL (7.4-10.4); Monocytes # 0.4 10^3/uL (0.2-0.9); Monocytes % 7.8 %; Neutrophils # 3.53 10^3/uL (1.8-7.7); Neutrophils % 66.6 %; Nucleated Red Blood Cells % 0 %; Platelet Count 205 10^3/cmm (157-399); Red Blood Count 4.26 10^6/uL (3.85-5.65); Red Cell Distribution Width 12.4 % (12.1-15.1); White Blood Count 5.29 10^3/uL (3.29-11.43)
[2022-12-28 09:44] LABS: Ferritin 62 ng/mL (30-400); Iron 153 ug/dL (59-158); Percent Saturation 55.2 % (20-50); Total Iron Binding Capacity 277 mcg/dl; Unsaturated Iron Binding 124 ug/dL (112-347)
== END 2023-01-16 23:59 | disposition home or self-care (01) ==
PROVIDERS: PCP Electrodiagnostic Medicine; Visit Provider Internal Medicine Medical Oncology
DX: E83.110 Hereditary hemochromatosis (principal)
CPT/HCPCS: 36415; 82728; 83540; 83550; 85025

== ENCOUNTER → 2023-06-29 09:17 | Outpatient (BNVA) | payer BC, SELFPAY | PROVIDERS: PCP Family Medicine; Visit Provider Family Medicine | DX: I10 Essential (primary) hypertension (principal); I48.0 Paroxysmal atrial fibrillation; E83.110 Hereditary hemochromatosis | CPT/HCPCS: 82728; 83540; 85025 ==

== ENCOUNTER → 2024-02-21 09:57 | Outpatient (BNVA) | payer BC, SELFPAY | PROVIDERS: PCP Family Medicine; Visit Provider Family Medicine | DX: I10 Essential (primary) hypertension (principal); I48.0 Paroxysmal atrial fibrillation; E83.110 Hereditary hemochromatosis | CPT/HCPCS: 80053; 80061; 82728; 83540; 85025 ==

== ENCOUNTER → 2024-11-11 14:05 | Outpatient (BNVA) | payer BC, SELFPAY | PROVIDERS: PCP Family Medicine; Visit Provider Family Medicine | DX: I48.0 Paroxysmal atrial fibrillation (principal); E83.110 Hereditary hemochromatosis | CPT/HCPCS: 80053; 82728; 83540; 85025 ==